=== PATIENT | female | born 1950 | race Caucasian/White ===

== ENCOUNTER 2016-12-27 13:48 | Emergency (ER) | payer BC ==
--- NOTE | 2016-12-27 14:11 | EDM.PDOC ---
ED HPI GI/ABDOMINAL - General Chief Complaint: Abdominal Pain Stated Complaint: LOW ABDOMINAL PAIN, BACK PAIN Time Seen by Provider: 12/27/16 14:11 Source of Information: Reports: Patient History Limitations: Reports: No limitations - History of Present Illness INITIAL COMMENTS - FREE TEXT/NARRATIVE: 66-year-old female presents to the ED with diffuse abdominal pain I strong cramping colicky component pain off and on since early Sunday a.m. December 25. She reports her bowels are still functioning with formed stool no blood. She feels her abdomen is distended. It is increasing pain in her lower back particularly both SI joints. She is nauseated and vomited once on Sunday morning and since that time is taking ice and ice chips mainly only. She had a ruptured appendix in late February of 2016 requiring surgery in [place]. She spent a week in hospital on IV antibiotics after the surgery. No doubt has several adhesions. She has a midline infraumbilical wound. Previous similar type problems. She still believes she is passing some flatus. No problems with her passing her urine. She has had some chills and low-grade fever of 102. Symptom Onset Date: 12/25/16 (Awoke her symptoms) Timing/Duration: Reports: Day(s):, Constant, Gradual onset, Waxing/waning Location: generalized Quality: Reports: cramping, fullness, stabbing, radiating (Into her lower back.) Severity: moderate Improves with: Reports: defecating Worsens with: Reports: other (Trying to drink or eat) Context: Denies: sick contact, bad/questionable food, out of country travel, recent surgery, recent trauma, lifting, activity/exercise, other Associated Symptoms (-Female): Reports: back pain (Chronic severe low back pain she states since her ruptured appendix), shoulder pain ( mostly in the distribution of both of her SI joints.), fever/chills, loss of appetite, malaise , nausea/vomiting. 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[employer]: Reports: Other (see below) (Does not take acetaminophen or NSAIDs as they she is allergic.) - Related Data Allergies/ADRs: Allergies Allergy/AdvReac Type Severity Reaction Status Date / Time No Known Allergies Allergy Verified 12/27/16 14:12 Home Meds: Home Meds Labetalol [Normodyne] 400 mg PO BID 03/15/16 [History] amLODIPine Besylate [Amlodipine Besylate] 5 mg PO DAILY 03/15/16 [History] Ciprofloxacin HCl [Cipro] 500 mg PO BID #16 tablet 12/27/16 [Rx] oxyCODONE HCl [Roxicodone] 5 mg PO Q4H PRN #12 tablet 12/27/16 [Rx] Past Medical History HEENT History: Reports: Impaired vision Cardiovascular History: Reports: Hypertension Gastrointestinal History: Reports: Other (see below) Other Gastrointestinal History: hemhorroids - Past Surgical History Female Surgical History: Reports: Hysterectomy Social & Family History - Family History Family Medical History: Noncontributory - Tobacco Use Smoking Status *Q: Current Every Day Smoker Years of Tobacco use: 1 Packs/Tins Daily: 50 - Recreational Drug Use Recreational Drug Use: No - Living Situation & Occupation Living situation: Reports: single Occupation: employed (Works at the local residential.) ED ROS GENERAL - Review of Systems Review Of Systems: See Below Constitutional: Reports: fever, chills, malaise, weakness, fatigue, decreased appetite, weight loss HEENT: Reports: No symptoms Respiratory: Reports: No Symptoms. Denies: Shortness of Breath, Wheezing, Pleuritic Chest Pain, Cough Cardiovascular: Reports: No symptoms Endocrine: Reports: no symptoms GI/Abdominal: Reports: Abdominal pain, Decreased appetite, Distension, Flatus, Nausea (Nausea comes and goes), Vomiting (Vomited once early Sunday morning.). Denies: Anorexia (See history present illness), Black stool, Bloody stool, Constipation, Diarrhea, Difficulty swallowing, Hematemesis (Feel she's still passing some flatus), Hematochezia, Melena, Stool incontinence, Other : Reports: no symptoms Musculoskeletal: Reports: back pain Skin: Reports: no symptoms (Lateral severe low back pain the distribution of both SI joints.) Neurological: Reports: No Symptoms Psychiatric: Reports: No symptoms Hematologic/Lymphatic: Reports: no symptoms Immunologic: Reports: no symptoms ED EXAM, GI/ABD - Physical Exam Exam: See Below Exam Limited By: No limitations General Appearance: alert, WD/WN, anxious, mild distress Eyes: bilateral: normal appearance (No jaundice) Throat/Mouth: Other Head: atraumatic (Tongue is dry and coated), normocephalic Neck: normal inspection, supple, non-tender, full range of motion. No: carotid bruit, lymphadenopathy (L), lymphadenopathy (R), thyromegaly Respiratory/Chest: lungs clear (Mild tachypnea dressed), normal breath sounds, no accessory muscle use, chest non-tender, respiratory distress, wheezing ( Occasional expiratory wheeze. Rarely she smokes a few cigarettes daily) Cardiovascular: regular rate, rhythm, no edema, no gallop, no murmur, no rub. No: normal peripheral pulses GI/Abdominal: hyperactive bowel sounds, tympanic bowel sounds (Very hyperactive bowel sounds in all 4 quadrants), tenderness (Worse in the midline lower abdomen just above the pubic symphysis.), distention. No: guarding (Diffusely tympanitic to percussion.), rebound, rigidity, hepatomegaly Back Exam: normal inspection, full range of motion. No: CVA tenderness (L), CVA tenderness (R) Extremities: normal inspection, normal range of motion, non-tender, no pedal edema, normal capillary refill Neurological: alert, oriented, CN II-XII intact, normal cognition, normal gait Psychiatric: normal affect, normal mood Skin Exam: Warm, Dry, Intact, Normal color, No rash EKG INTERPRETATION EKG Date: 12/27/16 Time: 14:55 Rhythm: NSR Rate (beats/min): 73 [place]: normal P-wave: enlarged (Consider left atrial hypertrophy pattern.) QRS: other (Q waves V1 to V3 compatible with an old anteroseptal myocardial infarction. Borderline criteria for left ventricular tree pattern.) ST-T: other (Mild diffuse early repolarization pattern. T waves are peaked symmetrically in several of the precordial leads. Consider hyperkalemia.) QT: normal Course - Vital Signs Last Recorded V/S: Last Vital Signs Temp 35.5 C 12/27/16 14:05 Pulse 86 12/27/16 14:05 Resp 20 12/27/16 14:05 BP 142/95 H 12/27/16 14:05 Pulse Ox 99 12/27/16 14:05 - Orders/Labs/Meds Orders: Active Orders 24 hr Category Date Time Status EKG Documentation Completion [RC] STAT Care 12/27/16 14:41 Active Abdomen 1V Flat [CR] Stat Exams 12/27/16 14:34 Taken Abdomen Pelvis w Cont [CT] Stat Exams 12/27/16 15:33 Taken Chest 1V Frontal [CR] Stat Exams 12/27/16 14:34 Taken CULTURE BLOOD [BC] Stat Lab 12/27/16 15:15 Received CULTURE BLOOD [BC] Stat Lab 12/27/16 15:27 Received CULTURE URINE [RM] Stat Lab 12/27/16 15:40 Received Dextrose 5%-0.9% NaCl [Dextrose 5%-Normal Saline] 1,000 Med 12/27/16 14:45 Active ml IV ASDIRECTED Sodium Chloride 0.9% [Saline Flush] Med 12/27/16 16:36 Active 10 ml FLUSH ONETIME PRN Blood Culture x2 Reflex Set [OM.PC] Stat Oth 12/27/16 14:42 Ordered Medication Orders Dextrose/Sodium Chloride (Dextrose 5%-Normal Saline) 1,000 mls @ 500 mls/hr IV ASDIRECTED PRISCILLA Last Admin: 12/27/16 15:10 Dose: 500 mls/hr Sodium Chloride (Saline Flush) 10 ml FLUSH ONETIME PRN PRN Reason: IV FLUSH Last Admin: 12/27/16 16:51 Dose: 10 ml Labs: Laboratory Tests 12/27/16 12/27/16 12/27/16 Range/Units 14:41 14:41 14:41 WBC 8.89 (3.98-10.04) K/mm3 RBC 4.82 (3.98-5.22) M/mm3 Hgb 14.9 (11.2-15.7) gm/L Hct 44.4 (34.1-44.9) % MCV 92.1 (79.4-94.8) fl MCH 30.9 (25.6-32.2) pg MCHC 33.6 (32.2-35.5) g/dl RDW Std Deviation 45.2 (36.4-46.3) fL Plt Count 238 (182-369) K/mm3 MPV 10.2 (9.4-12.3) fl Neutrophils % (Manual) 70 H (40-60) % Band Neutrophils % 0 (0-10) % Lymphocytes % (Manual) 29 (20-40) % Atypical Lymphs % 0 % Monocytes % (Manual) 0 L (2-10) % Eosinophils % (Manual) 1 (0.7-5.8) % Basophils % (Manual) 0 L (0.1-1.2) Platelet Estimate Adequate RBC Morph Comment Normal ESR (0-20) mm/hr PT 9.7 (8.0-13.0) SECONDS INR 0.90 Sodium 134 L (136-145) mEq/L Potassium 3.6 (3.5-5.1) mEq/L Chloride 97 L (98-107) mEq/L Carbon Dioxide 24 (21-32) mEq/L Anion Gap 16.6 H (5-15) BUN 16 (7-18) mg/dL Creatinine 0.9 (0.55-1.02) mg/dL Est Cr Clr Drug Dosing 46.69 mL/min Estimated GFR (MDRD) > 60 (>60) mL/min BUN/Creatinine Ratio 17.8 (14-18) Glucose 93 (80-115) mg/dL Calcium 9.4 (8.5-10.1) mg/dL Magnesium (1.8-2.4) mg/dl Total Bilirubin 0.6 (0.2-1.0) mg/dL AST 37 (15-37) U/L ALT 57 (14-59) U/L Alkaline Phosphatase 116 (46-116) U/L C-Reactive Protein (<1.0) mg/dL Total Protein 8.8 H (6.4-8.2) g/dl Albumin 4.2 (3.4-5.0) g/dl Globulin 4.6 gm/dL Albumin/Globulin Ratio 0.9 L (1-2) Lipase (73-393) U/L Urine Color (Yellow) Urine Appearance (Clear) Urine pH (5.0-8.0) Ur Specific [place] (1.005-1.030) Urine Protein (Negative) Urine Glucose (UA) (Negative) Urine Ketones (Negative) Urine Occult Blood (Negative) Urine Nitrite (Negative) Urine Bilirubin (Negative) Urine Urobilinogen (0.2-1.0) Ur Leukocyte Esterase (Negative) Urine RBC (0-5) /hpf Urine WBC (0-5) /hpf Ur Epithelial Cells Ur Squamous Epith Cells (0-5) /hpf Urine Bacteria (FEW) /hpf Urine Mucus (FEW) /hpf 12/27/16 12/27/16 12/27/16 Range/Units 14:41 14:41 14:41 WBC (3.98-10.04) K/mm3 RBC (3.98-5.22) M/mm3 Hgb (11.2-15.7) gm/L Hct (34.1-44.9) % MCV (79.4-94.8) fl MCH (25.6-32.2) pg MCHC (32.2-35.5) g/dl RDW Std Deviation (36.4-46.3) fL Plt Count (182-369) K/mm3 MPV (9.4-12.3) fl Neutrophils % (Manual) (40-60) % Band Neutrophils % (0-10) % Lymphocytes % (Manual) (20-40) % Atypical Lymphs % % Monocytes % (Manual) (2-10) % Eosinophils % (Manual) (0.7-5.8) % Basophils % (Manual) (0.1-1.2) Platelet Estimate RBC Morph Comment ESR 53 H (0-20) mm/hr PT (8.0-13.0) SECONDS INR Sodium (136-145) mEq/L Potassium (3.5-5.1) mEq/L Chloride (98-107) mEq/L Carbon Dioxide (21-32) mEq/L Anion Gap (5-15) BUN (7-18) mg/dL Creatinine (0.55-1.02) mg/dL Est Cr Clr Drug Dosing mL/min Estimated GFR (MDRD) (>60) mL/min BUN/Creatinine Ratio (14-18) Glucose (80-115) mg/dL Calcium (8.5-10.1) mg/dL Magnesium 2.2 (1.8-2.4) mg/dl Total Bilirubin (0.2-1.0) mg/dL AST (15-37) U/L ALT (14-59) U/L Alkaline Phosphatase (46-116) U/L C-Reactive Protein 11.9 H* (<1.0) mg/dL Total Protein (6.4-8.2) g/dl Albumin (3.4-5.0) g/dl Globulin gm/dL Albumin/Globulin Ratio (1-2) Lipase 120 (73-393) U/L Urine Color (Yellow) Urine Appearance (Clear) Urine pH (5.0-8.0) Ur Specific [place] (1.005-1.030) Urine Protein (Negative) Urine Glucose (UA) (Negative) Urine Ketones (Negative) Urine Occult Blood (Negative) Urine Nitrite (Negative) Urine Bilirubin (Negative) Urine Urobilinogen (0.2-1.0) Ur Leukocyte Esterase (Negative) Urine RBC (0-5) /hpf Urine WBC (0-5) /hpf Ur Epithelial Cells Ur Squamous Epith Cells (0-5) /hpf Urine Bacteria (FEW) /hpf Urine Mucus (FEW) /hpf 12/27/16 Range/Units 15:40 WBC (3.98-10.04) K/mm3 RBC (3.98-5.22) M/mm3 Hgb (11.2-15.7) gm/L Hct (34.1-44.9) % MCV (79.4-94.8) fl MCH (25.6-32.2) pg MCHC (32.2-35.5) g/dl RDW Std Deviation (36.4-46.3) fL Plt Count (182-369) K/mm3 MPV (9.4-12.3) fl Neutrophils % (Manual) (40-60) % Band Neutrophils % (0-10) % Lymphocytes % (Manual) (20-40) % Atypical Lymphs % % Monocytes % (Manual) (2-10) % Eosinophils % (Manual) (0.7-5.8) % Basophils % (Manual) (0.1-1.2) Platelet Estimate RBC Morph Comment ESR (0-20) mm/hr PT (8.0-13.0) SECONDS INR Sodium (136-145) mEq/L Potassium (3.5-5.1) mEq/L Chloride (98-107) mEq/L Carbon Dioxide (21-32) mEq/L Anion Gap (5-15) BUN (7-18) mg/dL Creatinine (0.55-1.02) mg/dL Est Cr Clr Drug Dosing mL/min Estimated GFR (MDRD) (>60) mL/min BUN/Creatinine Ratio (14-18) Glucose (80-115) mg/dL Calcium (8.5-10.1) mg/dL Magnesium (1.8-2.4) mg/dl Total Bilirubin (0.2-1.0) mg/dL AST (15-37) U/L ALT (14-59) U/L Alkaline Phosphatase (46-116) U/L C-Reactive Protein (<1.0) mg/dL Total Protein (6.4-8.2) g/dl Albumin (3.4-5.0) g/dl Globulin gm/dL Albumin/Globulin Ratio (1-2) Lipase (73-393) U/L Urine Color Light yellow (Yellow) Urine Appearance Clear (Clear) Urine pH 6.0 (5.0-8.0) Ur Specific [place] 1.010 (1.005-1.030) Urine Protein Negative (Negative) Urine Glucose (UA) Negative (Negative) Urine Ketones Negative (Negative) Urine Occult Blood Trace-lysed H (Negative) Urine Nitrite Negative (Negative) Urine Bilirubin Negative (Negative) Urine Urobilinogen 0.2 (0.2-1.0) Ur Leukocyte Esterase 1+ H (Negative) Urine RBC 0-5 (0-5) /hpf Urine WBC 20-30 H (0-5) /hpf Ur Epithelial Cells Not Reportable Ur Squamous Epith Cells 5-10 H (0-5) /hpf Urine Bacteria Moderate H (FEW) /hpf Urine Mucus Not seen (FEW) /hpf Meds: Medications Generic Name Dose Route Start Last Admin Trade Name Freq PRN Reason Stop Dose Admin Dextrose/Sodium Chloride 1,000 mls @ 500 mls/hr 12/27/16 14:45 12/27/16 15:10 Dextrose 5%-Normal Saline IV 500 mls/hr ASDIRECTED PRISCILLA Administration Sodium Chloride 10 ml 12/27/16 16:36 12/27/16 16:51 Saline Flush FLUSH 10 ml ONETIME PRN Administration IV FLUSH Discontinued Medications Generic Name Dose Route Start Last Admin Trade Name Freq PRN Reason Stop Dose Admin Diatrizoate Meglum/Diatrizoate Sod 90 ml 12/27/16 16:36 12/27/16 16:51 Gastrografin 37% PO 12/27/16 16:37 90 ml ONETIME ONE Administration Hydromorphone HCl 0.5 mg 12/27/16 14:43 12/27/16 15:05 Dilaudid IVPUSH 12/27/16 14:44 0.5 mg ONETIME ONE Administration Hydromorphone HCl 0.5 mg 12/27/16 16:24 12/27/16 16:30 Dilaudid IVPUSH 12/27/16 16:25 0.5 mg ONETIME ONE Administration Hydromorphone HCl 1 mg 12/27/16 17:37 12/27/16 17:48 Dilaudid IVPUSH 12/27/16 17:38 1 mg ONETIME ONE Administration Ceftriaxone Sodium 1 gm/ 100 mls @ 200 mls/hr 12/27/16 16:56 12/27/16 17:41 Sodium Chloride IV 12/27/16 17:25 200 mls/hr ONETIME ONE Administration Iopamidol 100 ml 12/27/16 16:36 12/27/16 16:51 Isovue-300 (61%) IVPUSH 12/27/16 16:37 100 ml ONETIME ONE Administration Ondansetron HCl 4 mg 12/27/16 14:42 12/27/16 15:02 Zofran IVPUSH 12/27/16 14:43 4 mg ONETIME ONE Administration - Radiology Interpretation Free Text/Narrative:: 66-year-old female presents the ED with diffuse abdominal discomfort since she awoke on December 25. Diffuse abdominal cramping pain and feels bloated up. She states she still having normal formed bowel movement without blood. She believes she still passing some flatus. She is taking only water or ice chips internally. She vomited once Sunday morning. This was bilious and contained little bit of undigested food from the night before. Of note she had recent ruptured appendix in late February of 2016 requiring emergency surgery and a midline laparotomy. She spent a week in [facility]. Dr. Almanza was her surgeon. She's never had a bowel obstruction or problems since. On today's examination she is distended and hypertympanitic intubate to percussion throat. Very hyperactive bowel sounds suggesting a partial bowel obstruction by history since she still having stools. Plan IV D5 normal saline at open. given Dilaudid 0.5 mg IV and Zofran 4 mg IV for nausea and pain relief. She is for chest x-ray one view of the abdomen and lab work. Urinalysis as well. - Re-Assessments/Exams Free Text/Narrative Re-Assessment/Exam: 12/27/16 15:32 one view chest x-ray reveals mildly hyperinflated lung rehman but normal cardiac silhouette and no infiltrates in the lungs. KUB reveals numerous dilated loops of small bowel throughout the abdomen without any air- fluid levels. Appears to be a fair amount of fluid down in the pelvis however. We'll therefore go ahead with CT of the abdomen and pelvis with IV contrast. 12/27/16 15:36 white count is 8.89 without a differential available yet. Hemoglobin is 14.9 hematocrit 44.4. Platelets are 238,000. PT is 9.7 INR 0.90. Serum sodium is mildly low at 134 potassium 3.6 chloride 97 bicarbonate 24. Anion gap is mildly elevated at 16.6 CRP is markedly elevated at 11.9 suggesting an underlying infective process. Query pelvic abscess. Will proceed with the CT of the abdomen and pelvis as above. She is having increased abdominal pain. I will prescribe Dilaudid 0.5 mg IV once again. 12/27/16 16:28 the differential on the white count is 70% neutrophils and no band cells. Urinalysis shows 1+ leukocyte esterase and 20-30 white blood cells per high-power field with moderate bacteria. Urine culture will be ordered. I will start her on IV antibiotic -Rocephin 1 g IV after she returns from CT suite. 12/27/16 17:38: Patient is having more pain at this time. Will give her Dilaudid 1 mg IV. Awaiting for the formal CT report from [facility]. 12/27/16 18:20: CT reports he has small hiatal hernia with gastroesophageal reflux. Incidental 5 x 3 mm noncalcified pulmonary nodule in the right lung base anteriorly recommend progress the patient is no followup necessary. Abdomen shows scattered small density liver lesions most likely representing cysts and these were noted on previous CT. Gallbladder reveals diffuse biliary ductal dilatation the common bile duct measures up to 1 cm diameter. There is also diffuse intrahepatic biliary ductal dilatation of unclear etiology. No radiopaque common bile stones are seen. Gallbladder is mildly dilated and its wall enhances. No evidence of pericholecystic fluid or inflammation. No gallstones noted. Pancreas appears normal on CT. Spleen appears normal adrenals are normal. Kidneys and ureters showed low-density lesion left kidney which is a cyst. The stomach and bowel there is mild small bowel dilatation there are multiple loops that are upper caliber of normal. 2 mildly dilated distal small bowel. There is no definite single abruption transition point seen in the small bowel there is no evidence of diffuse small bowel dilatation. The colon was not significantly decompressed. Findings are most likely due to an ileus rather than early small bowel obstruction. Diffuse colonic diverticulitis. Other than the left hemicolon. No evidence of acute diverticulitis patient appears to be [id number] resection which would correlate with her [place] appendix in February of last year. There is an enterocolic anastomosis in the right lower quadrant. Appendix is been surgically removed as has the uterus. 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 This may account for the patient's quite severe low back pain. On review of her labs there is no evidence of biliary tree obstruction. A lipase was overlooked and was ordered. I suspect early is secondary to urinary tract infection. She will need to be admitted to the hospital until partial bowel obstruction is ruled out completely. CRP of 11.9 strongly suggests an underlying infective process and urine is revealing 20-30 white blood cells per high-power field. Cultures are pending. I spoke with the patient at length and she is decided she does not wish to come into the hospital. She prefers to try and see how things go if. No she's been up once and did pass a fair amount of the contrast per rectum indicating that she's not obstructed. 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 I will therefore discharge her to home and place her on Cipro 500 mg twice daily for 7 days to clear up urinary tract infection. Roxicodone tablets 5 mg one or 2 every 4-6 hours needed for pain relief if needed. To return if she is not getting better in the next 48 hours or not passing flatus. No will be given to excuse her from work place until next one Sunday. Of note her lipase was normal at 120 as well. Departure - Departure Time of Disposition: 19:11 Disposition: Home, Self-Care 01 Condition: fair Clinical Impression: Abdominal pain in female patient, Adynamic ileus, Upper urinary tract infection Prescriptions: Ciprofloxacin HCl [Cipro] 500 mg PO BID #16 tablet oxyCODONE HCl [Roxicodone] 5 mg PO Q4H PRN #12 tablet PRN Reason: Pain relief Instructions: Ileus, Urinary Tract Infection, Adult, [id number], Abdominal Pain, Adult, [id number] Referrals: Faisal John MD [Primary Care Provider] - Forms: ED Department Discharge Additional Instructions: Evaluation in the his apartment today in regards to diffuse lower abdominal pain with distention worsening over the last 3 days and associated increased pain in the lower back. Initial evaluation revealed hyperactive bowel sounds and distention indicating a lot of extra air within the bowel in the abdomen. X- rays however did not suggest a bowel obstruction but he did shoot show several loops of dilated small bowel. CT scan of the abdomen pulses are performed performed to rule out any source of infection it in the pelvis and none was found. The bowel itself is dilated with quite a bit of fluid within its without any obvious obstruction. We call this an ileus pattern which means it's motility is lower than normal in the gases are kept in the bowel wall rhythm normal causing distention. The cause of this ileus may well be urinary tract infection which was diagnosed as what well with lots of pus cells and bacteria noted in the urine. Also markers for inflammation were elevated due to the infection. He received first dose of antibiotic called Rocephin intravenously while in the ED for urinary tract infection. He needs fairly prescription tomorrow for Cipro 500 mg twice daily for 8 more days to clear up the infection completely. Also Roxicodone tablets one tablet every 4-6 hours may be used as needed for pain relief. He would need to return to the emergency room if you stopped passing gas or you're abdominal pain increases over the next 48 hours instead of improves. Suggest you be off work until Sunday, January 01 due to current illness. Try and take plenty of fluids such as Gatorade or Powerade to daily 5 ounces an hour. May advance to soup broth and then turkey rice turkey noodle soup et cetera. May then advance to a regular diet as tolerated. 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 This requires further consultation with a neurosurgeon who knows more about this problem and how it can be managed. Please have your personal physician make appropriate referral in this regard. - My Orders Last 24 Hours: My Active Orders 12/27/16 14:34 Abdomen 1V Flat [CR] Stat Chest 1V Frontal [CR] Stat 12/27/16 14:41 EKG Documentation Completion [RC] STAT 12/27/16 14:42 Blood Culture x2 Reflex Set [OM.PC] Stat 12/27/16 14:45 Dextrose 5%-0.9% NaCl [Dextrose 5%-Normal Saline] 1,000 ml IV ASDIRECTED 12/27/16 15:15 CULTURE BLOOD [BC] Stat 12/27/16 15:27 CULTURE BLOOD [BC] Stat 12/27/16 15:33 Abdomen Pelvis w Cont [CT] Stat 12/27/16 15:40 CULTURE URINE [RM] Stat 12/27/16 16:36 Sodium Chloride 0.9% [Saline Flush] 10 ml FLUSH ONETIME PRN - Assessment/Plan Last 24 Hours: My Active Orders 12/27/16 14:34 Abdomen 1V Flat [CR] Stat Chest 1V Frontal [CR] Stat 12/27/16 14:41 EKG Documentation Completion [RC] STAT 12/27/16 14:42 Blood Culture x2 Reflex Set [OM.PC] Stat 12/27/16 14:45 Dextrose 5%-0.9% NaCl [Dextrose 5%-Normal Saline] 1,000 ml IV ASDIRECTED 12/27/16 15:15 CULTURE BLOOD [BC] Stat 12/27/16 15:27 CULTURE BLOOD [BC] Stat 12/27/16 15:33 Abdomen Pelvis w Cont [CT] Stat 12/27/16 15:40 CULTURE URINE [RM] Stat 12/27/16 16:36 Sodium Chloride 0.9% [Saline Flush] 10 ml FLUSH ONETIME PRN
[2016-12-27] MEDS ORDERED: Ondansetron 4 MG/2 ML SDV IVPUSH ONE (14:42)
[2016-12-27] MEDS ORDERED: HYDROmorphone 0.5 MG/0.5 ML Syringe IVPUSH ONE ×2 (14:43→16:24)
[2016-12-27] MEDS ORDERED: Dextrose 5%-0.9% NaCl 1,000 ML IV SCH (14:45)
[2016-12-27] MEDS ORDERED: Diatrizoate Meglumine/Diatrizoate Sodium 37% 120 ML Bottle PO ONE (16:36)
[2016-12-27] MEDS ORDERED: Sodium Chloride 0.9% 10 ML Syringe FLUSH PRN (16:36)
[2016-12-27] MEDS ORDERED: Iopamidol 612 MG/ML 100 ML Bottle IVPUSH ONE (16:36)
[2016-12-27] MEDS ORDERED: cefTRIAXone 1 GM in Sodium Chloride 0.9% 100 ML IV ONE (16:56)
[2016-12-27] MEDS ORDERED: HYDROmorphone 1 MG/ML Syringe IVPUSH ONE (17:37)
[2016-12-27 20:22] VITALS: BP 152/84
--- NOTE | 2016-12-28 11:43 | CT ---
CT abdomen and pelvis Technique: Multiple axial sections were obtained from above the dome of the diaphragm inferiorly through the pubic symphysis. Intravenous and oral contrast has been given. Comparison: Previous abdominal and pelvic CT study of 03/15/16. Findings: Minimal subpleural nodule noted within the anterior right middle lobe. This measures about 3 mm in size. This area was not included on prior study to determine stability. Minimal dependent atelectasis seen within both posterior lung bases. Mild intrahepatic biliary duct dilatation is seen with mildly prominent extrahepatic biliary duct. Findings are fairly stable from prior exam. Slightly dilated gallbladder is seen also appearing stable from prior exam. Low density lesions are seen within the liver compatible with small cysts. Spleen size appears normal. Small hiatal hernia is seen with gastroesophageal reflux of contrast. Adrenal glands show no nodule. Pancreas appears within normal limits. Aorta shows atherosclerotic change without aneurysmal dilatation. Stable cyst noted within the left kidney. No retroperitoneal adenopathy or mesenteric abnormalities are seen. No pelvic mass or adenopathy is seen. Small bowel is slightly prominent in size. Mild ileus is a possibility. No free fluid or inflammatory change is seen. Delayed images show contrast within the distal ureters and bladder. Bone window settings were reviewed showing degenerative change within the spine. Impression: 1. Small subpleural nodule within the right middle lobe. Please correlate if patient is a smoker and if so, follow-up chest CT recommended in 1 year. 2. Mild intrahepatic and extrahepatic biliary duct dilatation which is stable from prior CT exam. 3. Small hiatal hernia with gastroesophageal reflux. 4. Slightly prominent small bowel most likely due to mild ileus. 5. Other incidental findings as noted above. Agree with preliminary report issued by [facility] (preliminary report dictated on 12/27/16, 7:10 PM Central Time) Diagnostic code #3
--- NOTE | 2016-12-28 11:46 | CR ---
Abdomen: Supine view of the abdomen was obtained. Comparison: Previous study of 03/15/16. Slight increased gas within colon and small bowel noted. Degenerative change and mild scoliosis is present within the spine. No abnormal calcifications or soft tissue abnormality is seen. Impression: 1. Slight increased bowel gas. Findings most likely due to mild ileus or swallowed air. Findings do not appear to be obstructive. 2. Other incidental findings. Diagnostic code #2
--- NOTE | 2016-12-28 11:46 | CR ---
Chest: Frontal view of the chest was obtained. Comparison: No previous chest x-ray. Heart size is normal. Tortuous thoracic aorta is seen. Lungs are hyperinflated. Pleural thickening noted within the left upper chest as well as mild left upper lobe apical density believed to represent scarring. Lungs otherwise are clear. Impression: 1. Findings within the left upper chest likely chronic. 2. Emphysematous change. 3. Nothing acute is otherwise seen. Diagnostic code #2
== END 2016-12-27 19:53 | disposition home or self-care (01) ==
LOC: JD.ED 13:48
DX: K56.0 Paralytic ileus (principal); K21.9 Gastro-esophageal reflux disease without esophagitis; K44.9 Diaphragmatic hernia without obstruction or gangrene; R91.1 Solitary pulmonary nodule; N39.0 Urinary tract infection, site not specified; I10 Essential (primary) hypertension; Z79.899 Other long term (current) drug therapy; F17.200 Nicotine dependence, unspecified, uncomplicated
CPT/HCPCS: 36415; 71010; 74000; 74177; 80053; 81001; 83690; 83735; 85025; 85610; 85652; 86140; 87040; 87086; 93005; 96361; 96365; 96375; 96376; 99285; J0696; J1170; J2405; J7030; J7042; J7050; Q9963; Q9967; 87088; 87186

== ENCOUNTER 2020-01-22 10:37 | Emergency (ER) | payer BC, MEDICARE ==
[2020-01-22] MEDS ORDERED: Tenecteplase 50 MG Kit IV ONE (10:40)
[2020-01-22] MEDS ORDERED: Sodium Chloride 0.9% 10 ML Syringe FLUSH PRN (10:40)
[2020-01-22] MEDS ORDERED: Heparin Sodium 5,000 Units/ML Vial IVPUSH ONE (10:41)
[2020-01-22] MEDS ORDERED: Heparin Sodium/D5W 25,000 UNITS/500 ML BAG IV SCH (10:45)
[2020-01-22] MEDS ORDERED: Metoprolol Tartrate 5 MG/5 ML SDV IVPUSH ONE ×2 (10:47→11:00)
--- NOTE | 2020-01-22 10:49 | EDM.PDOC ---
ED HPI GENERAL MEDICAL PROBLEM - General Chief Complaint: Chest Pain Stated Complaint: [facility] Time Seen by Provider: 01/22/20 10:39 Source of Information: Reports: Patient, EMS History Limitations: Reports: No Limitations - History of Present Illness INITIAL COMMENTS - FREE TEXT/NARRATIVE: The patient presents by [facility] for a STEMI. She said this all started this morning at 6am with chest pain, shortness of breath and she was sweaty. When EMS arrived they found the same. They did a 12 lead EKG and they found her to have ST elevation in the inferior leads. She as given aspirin and morphine for pain. She still has pain. She has never had an IN before. She does have a history of hypertension but she quit taking her medications a few months ago because she was doing better. She has no fever, chills, cough, congestion or runny nose. Onset: Sudden Duration: Hour(s): Location: Reports: Chest Quality: Reports: Pressure Severity: Severe Improves with: Reports: None Worsens with: Reports: None Associated Symptoms: Reports: Chest Pain, Shortness of Breath. Denies: Cough, Fever/Chills, Headaches, Nausea/Vomiting Treatments STAVE BLOCK SPLITTER: Reports: Aspirin, EKG, IV/IO, Oxygen, Other (see below) Other Treatments STAVE BLOCK SPLITTER: morphine 4 mg Middle Chest Pain Score (Numeric/FACES): 10 - Related Data Allergies Allergy/AdvReac Type Severity Reaction Status Date / Time No Known Allergies Allergy Verified 01/22/20 10:42 Home Meds: Home Meds Labetalol [Normodyne] 400 mg PO BID 03/15/16 [History] amLODIPine Besylate [Amlodipine Besylate] 5 mg PO DAILY 03/15/16 [History] Ciprofloxacin HCl [Cipro] 500 mg PO BID #16 tablet 12/27/16 [Rx] oxyCODONE HCl [Roxicodone] 5 mg PO Q4H PRN #12 tablet 12/27/16 [Rx] Past Medical History HEENT History: Reports: Impaired Vision Cardiovascular History: Reports: Hypertension Gastrointestinal History: Reports: Other (See Below) Other Gastrointestinal History: hemhorroids - Past Surgical History GI Surgical History: Reports: Appendectomy, Other (See Below) Social & Family History - Family History Family Medical History: Noncontributory - Caffeine Use Caffeine Use: Reports: None - Living Situation & Occupation Living situation: Reports: Single Occupation: Employed ED ROS GENERAL - Review of Systems Review Of Systems: See Below Constitutional: Reports: No Symptoms HEENT: Reports: No Symptoms Respiratory: Reports: Shortness of Breath Cardiovascular: Reports: Chest Pain Endocrine: Reports: No Symptoms GI/Abdominal: Reports: No Symptoms : Reports: No Symptoms Musculoskeletal: Reports: No Symptoms ED EXAM, GENERAL - Physical Exam Exam: See Below Exam Limited By: No Limitations General Appearance: Alert, No Apparent Distress Ears: Normal External Exam Nose: Normal Inspection Head: Atraumatic, Normocephalic Neck: Normal Inspection Respiratory/Chest: No Respiratory Distress, Lungs Clear, Normal Breath Sounds Cardiovascular: Regular Rate, Rhythm, No Edema, No Murmur GI/Abdominal: Soft, Non-Tender, No Organomegaly, No Mass Back Exam: Normal Inspection Extremities: Normal Inspection Neurological: Alert, Oriented, No Motor/Sensory Deficits Skin Exam: Pallor EKG INTERPRETATION EKG Date: 01/22/20 Time: 10:35 Rhythm: Other (sinus bradycardia) Rate (Beats/Min): 57 [place]: Normal P-Wave: Present QRS: Normal ST-T: Elevated (in II, III, aVF with reciprocal changes in V2 through V6) Course - Vital Signs Last Recorded V/S: Last Vital Signs Temp 96.8 F L 01/22/20 10:38 Pulse 54 L 01/22/20 10:48 Resp 16 01/22/20 10:48 BP 242/133 H 01/22/20 10:48 Pulse Ox 99 01/22/20 10:48 - Orders/Labs/Meds Orders: Active Orders 24 hr Category Date Time Status Cardiac Monitoring [RC] . DIRECTED Care 01/22/20 10:40 Active EKG Documentation Completion [RC] STAT Care 01/22/20 10:40 Active Oxygen Therapy [RC] PRN Care 01/22/20 10:40 Active Peripheral IV Care [RC] . DIRECTED Care 01/22/20 10:40 Active Chest 1V Frontal [CR] Stat Exams 01/22/20 10:40 Taken CBC WITH AUTO DIFF [HEME] Stat Lab 01/22/20 10:40 Ordered COMPREHENSIVE METABOLIC PN,CMP [CHEM] Stat Lab 01/22/20 10:40 Ordered TROPONIN I [CHEM] Stat Lab 01/22/20 10:40 Ordered Heparin Sodium/D5W [Heparin 25,000 Units in D5W 500 ML] Med 01/22/20 10:45 Active 25,000 units in 500 ml IV TITRATE Nitroglycerin/D5W [Nitroglycerin 25 MG/D5W 250 ML] Med 01/22/20 11:00 Active 25 mg in 250 ml IV TITRATE Sodium Chloride 0.9% [Saline Flush] Med 01/22/20 10:40 Active 10 ml FLUSH ASDIRECTED PRN Peripheral IV Insertion Adult [OM.PC] Stat Oth 01/22/20 10:40 Ordered Medication Orders Heparin Sodium/Dextrose (Heparin 25,000 Units In D5w 500 Ml) 25,000 units in 500 mls @ 18.779 mls/hr IV TITRATE PRISCILLA; Protocol Nitroglycerin/Dextrose (Nitroglycerin 25 Mg/D5w 250 Ml) 25 mg in 250 mls @ 5 mls/hr IV TITRATE PRISCILLA; Protocol Sodium Chloride (Saline Flush) 10 ml FLUSH ASDIRECTED PRN PRN Reason: Keep Vein Open Meds: Medications Generic Name Dose Route Start Last Admin Trade Name Freq PRN Reason Stop Dose Admin Heparin Sodium/Dextrose 25,000 units in 500 mls @ 18.779 mls/hr 01/22/20 10: 45 Heparin 25,000 Units In D5w 500 Ml IV TITRATE PRISCILLA Protocol 18 UNITS/KG/HR Nitroglycerin/Dextrose 25 mg in 250 mls @ 5 mls/hr 01/22/20 11:00 Nitroglycerin 25 Mg/D5w 250 Ml IV TITRATE PRISCILLA Protocol Sodium Chloride 10 ml 01/22/20 10:40 Saline Flush FLUSH ASDIRECTED PRN Keep Vein Open Discontinued Medications Generic Name Dose Route Start Last Admin Trade Name Freq PRN Reason Stop Dose Admin Heparin Sodium (Porcine) 3,120 units 01/22/20 10:41 Heparin Sodium IVPUSH 01/22/20 10:42 .BOLUS ONE Metoprolol Tartrate 5 mg 01/22/20 10:47 Lopressor IVPUSH 01/22/20 10:48 ONETIME ONE Tenecteplase 30 mg 01/22/20 10:40 Tnkase IV 01/22/20 10:41 ONETIME ONE Protocol - Re-Assessments/Exams Free Text/Narrative Re-Assessment/Exam: 01/22/20 10:56 A medical alert was called. The patient's EKG shows ST elevation in the inferior leads. I ordered TnKase per weight based protocol. I also ordered lopressor 5mg IV, nitro drip, heparin bolus and drip, CXR and labs. Her CXR looks good. I called [facility] in [place] and talked with the ER doctor Dr Velázquez and Dr Soler the log driver. They accepted the patient. Departure - Departure Time of Disposition: 11:10 Disposition: DC/Tfer to Acute Hospital 02 Reason for Transfer *Q: Primary PCI Indicated Condition: Serious Clinical Impression: ST elevation (STEMI) myocardial infarction Qualifiers: Involved coronary artery: other coronary artery Qualified Code(s): I21.29 - ST elevation (STEMI) myocardial infarction involving other sites Hypertension Qualifiers: Hypertension type: essential hypertension Qualified Code(s): I10 - Essential ( primary) hypertension Referrals: PCP,None [Primary Care Provider] - Forms: ED Department Discharge Sepsis Event Note - Evaluation Sepsis Screening Result: No Definite Risk - Focused Exam Vital Signs: Vital Signs Temp Pulse Resp BP Pulse Ox 01/22/20 10:48 54 L 16 242/133 H 99 01/22/20 10:38 96.8 F L 54 L 16 100 Date Exam was Performed: 01/22/20 Time Exam was Performed: 10:52 - My Orders Last 24 Hours: My Active Orders 01/22/20 10:40 Cardiac Monitoring [RC] . DIRECTED EKG Documentation Completion [RC] STAT Oxygen Therapy [RC] PRN Peripheral IV Care [RC] . DIRECTED Chest 1V Frontal [CR] Stat CBC WITH AUTO DIFF [HEME] Stat COMPREHENSIVE METABOLIC PN,CMP [CHEM] Stat TROPONIN I [CHEM] Stat Sodium Chloride 0.9% [Saline Flush] 10 ml FLUSH ASDIRECTED PRN Peripheral IV Insertion Adult [OM.PC] Stat 01/22/20 10:45 Heparin Sodium/D5W [Heparin 25,000 Units in D5W 500 ML] 25,000 units in 500 ml IV TITRATE 01/22/20 11:00 Nitroglycerin/D5W [Nitroglycerin 25 MG/D5W 250 ML] 25 mg in 250 ml IV TITRATE - Assessment/Plan Last 24 Hours: My Active Orders 01/22/20 10:40 Cardiac Monitoring [RC] . DIRECTED EKG Documentation Completion [RC] STAT Oxygen Therapy [RC] PRN Peripheral IV Care [RC] . DIRECTED Chest 1V Frontal [CR] Stat CBC WITH AUTO DIFF [HEME] Stat COMPREHENSIVE METABOLIC PN,CMP [CHEM] Stat TROPONIN I [CHEM] Stat Sodium Chloride 0.9% [Saline Flush] 10 ml FLUSH ASDIRECTED PRN Peripheral IV Insertion Adult [OM.PC] Stat 01/22/20 10:45 Heparin Sodium/D5W [Heparin 25,000 Units in D5W 500 ML] 25,000 units in 500 ml IV TITRATE 01/22/20 11:00 Nitroglycerin/D5W [Nitroglycerin 25 MG/D5W 250 ML] 25 mg in 250 ml IV TITRATE
[2020-01-22] MEDS ORDERED: Morphine 4 MG/ML Syringe IVPUSH ONE (10:59)
[2020-01-22] MEDS ORDERED: Nitroglycerin/D5W 25 MG/250 ML BOTTLE IV SCH (11:00)
[2020-01-22] MEDS ORDERED: Morphine 4 MG/ML Syringe ONE (11:01)
[2020-01-22] MEDS ORDERED: Metoprolol Tartrate 5 MG/5 ML SDV ONE (11:07)
[2020-01-22] MEDS ORDERED: Ondansetron 4 MG/2 ML SDV IVPUSH ONE (11:14)
[2020-01-22] MEDS ORDERED: Ondansetron 4 MG/2 ML SDV ONE (11:15)
[2020-01-22 11:33] VITALS: PULSE 65
--- NOTE | 2020-01-22 11:33 | CR ---
Chest: Portable view of the chest was obtained. Comparison: No prior chest imaging. Heart size within normal limits for portable technique. Tortuous thoracic aorta is noted. No acute parenchymal change is suspected. Slight degenerative change is seen within the spine. Bony structures are also osteopenic. Impression: 1. Findings as noted above. 2. Nothing acute is suspected. Diagnostic code #2 This report was dictated in [facility]
[2020-01-22 11:35] VITALS: BP 180/95
== END 2020-01-22 11:35 ==
LOC: JD.ED 10:37
DX: I21.29 ST elevation (STEMI) myocardial infarction involving other sites (principal); I10 Essential (primary) hypertension; R00.1 Bradycardia, unspecified; Z79.899 Other long term (current) drug therapy
CPT/HCPCS: 36415; 71045; 80053; 84484; 85025; 92975; 93005; 96365; 96368; 96375; 99285; J1644; J2270; J2405; J3101; J3490; 93010

== ENCOUNTER 2021-03-18 11:07 | Emergency (ER) | payer BC, MEDICARE ==
[2021-03-18 11:29] VITALS: BP 131/66; PULSE 68
--- NOTE | 2021-03-18 12:25 | CR ---
Right forearm: 2 views of the right forearm were obtained. Comparison: No prior forearm study is available. Joint space narrowing is noted between the distal radius and navicular bone. Widening of the distance between the lunate and navicular bone are seen compatible with inter-carpal ligament rupture. Degenerative change is noted off the distal navicular bone as well as at the CMC joint of the thumb. Joint space narrowing is also noted within the elbow. No acute fracture or other bony abnormality is appreciated. Mild soft tissue swelling is noted. Impression: 1. Degenerative change within the wrist and elbow. 2. No acute osseous abnormality is appreciated. Diagnostic code #2
--- NOTE | 2021-03-18 12:30 | EDM.PDOC ---
ED HPI GENERAL MEDICAL PROBLEM - General Chief Complaint: Upper Extremity Injury/Pain Stated Complaint: R WRIST/ARM INJURY Time Seen by Provider: 03/18/21 11:35 Source of Information: Reports: Patient, RN Notes Reviewed History Limitations: Reports: No Limitations - History of Present Illness INITIAL COMMENTS - FREE TEXT/NARRATIVE: Patient is a 71-year-old female presenting to the emergency department for evaluation of right wrist pain. She reports that yesterday she was outside working in her garden when a grass snake startled her. She fell backwards and reached her right arm out to catch herself. She reports pain to the medial aspect of her right wrist. She is on Plavix. Denies any other injuries. She has no hip pain or back pain. She did not hit her head. Denies any previous fractures to this wrist. Right Lower Arm Pain Score (Numeric/FACES): 8 - Related Data Allergies Allergy/AdvReac Type Severity Reaction Status Date / Time No Known Allergies Allergy Verified 01/22/20 10:42 Home Meds: Home Meds amLODIPine Besylate [Amlodipine Besylate] 5 mg PO DAILY 03/15/16 [History] Aspirin [Halfprin] 81 mg PO DAILY 03/18/21 [History] Clopidogrel Bisulfate [Plavix] 75 mg PO DAILY 03/18/21 [History] Metoprolol Tartrate 25 mg PO DAILY 03/18/21 [History] Past Medical History HEENT History: Reports: Impaired Vision, Other (See Below) Other HEENT History: issues withe right eye-loss of vision and had surgery last sunday Cardiovascular History: Reports: Hypertension, CA, Stents Gastrointestinal History: Reports: Other (See Below) Other Gastrointestinal History: hemhorroids - Infectious Disease History Infectious Disease History: Reports: Chicken Pox, Measles - Past Surgical History GI Surgical History: Reports: Appendectomy, Other (See Below) Other GI Surgeries/Procedures: ruptured appendix in March 2016 Female Surgical History: Reports: Hysterectomy Social & Family History - Family History Family Medical History: No Pertinent Family History - Tobacco Use Tobacco Use Status *Q: Current Every Day Tobacco User Years of Tobacco use: 50 Packs/Tins Daily: 0.1 - Caffeine Use Caffeine Use: Reports: Coffee - Recreational Drug Use Recreational Drug Use: No - Living Situation & Occupation Living situation: Reports: Single Occupation: Employed Review of Systems - Review of Systems Review Of Systems: See Below Constitutional: Reports: No Symptoms Eyes: Reports: No Symptoms. Denies: Vision Change Ears: Reports: No Symptoms Nose: Reports: No Symptoms Mouth/Throat: Reports: No Symptoms Respiratory: Reports: No Symptoms. Denies: Shortness of Breath, Cough Cardiovascular: Reports: No Symptoms. Denies: Chest Pain GI/Abdominal: Reports: No Symptoms Genitourinary: Reports: No Symptoms Musculoskeletal: Reports: Other (Right wrist pain ecchymosis and swelling). Denies: Back Pain Skin: Reports: Bruising Neurological: Reports: No Symptoms Psychiatric: Reports: No Symptoms ED EXAM, GENERAL - Physical Exam Exam: See Below General Appearance: Alert, WD/WN, No Apparent Distress Respiratory/Chest: No Respiratory Distress, Lungs Clear, Normal Breath Sounds, No Accessory Muscle Use, Chest Non-Tender Cardiovascular: Normal Peripheral Pulses, Regular Rate, Rhythm, No Edema, No Gallop, No JVD, No Murmur, No Rub Extremities: Other (Extensive ecchymosis to the right wrist extending from the proximal hand to approximately one third up the forearm. No obvious deformity. Mild tenderness to palpation to the medial aspect of the wrist. Full range of motion.) Neurological: Alert, Oriented, CN II-XII Intact, Normal Cognition, Normal Gait, Normal Reflexes, No Motor/Sensory Deficits Psychiatric: Normal Affect, Normal Mood Course - Vital Signs Last Recorded V/S: Last Vital Signs Temp 96.2 F L 03/18/21 11:28 Pulse 68 03/18/21 11:28 Resp 20 03/18/21 11:28 BP 131/66 03/18/21 11:28 Pulse Ox 97 03/18/21 11:28 - Orders/Labs/Meds Orders: Active Orders 24 hr Category Date Time Status Hand Comp Min 3V Rt [CR] Stat Exams 03/18/21 11:39 Taken Wrist Comp Min 3V Rt [CR] Stat Exams 03/18/21 11:39 Taken - Re-Assessments/Exams Free Text/Narrative Re-Assessment/Exam: 03/18/21 12:28 X-ray of the right hand, wrist, and forearm reviewed by myself and Dr. Alvarez showed no evidence of fracture. Formal radiologist read is pending. Wayne wrap was applied to the hand and wrist to help with swelling. Recommend ice and elevation. I will write off from work for the next 2 days. Discharge instructions as documented. Departure - Departure Time of Disposition: 12:29 Disposition: Home, Self-Care 01 Condition: Good Clinical Impression: Wrist contusion Qualifiers: Encounter type: initial encounter Laterality: right Qualified Code(s): S60.211A - Contusion of right wrist, initial encounter - Discharge Information *PRESCRIPTION DRUG MONITORING PROGRAM REVIEWED*: No *COPY OF PRESCRIPTION DRUG MONITORING REPORT IN PATIENT [place]: No Instructions: Contusion Referrals: Lorri Celaya NP [Primary Care Provider] - Forms: ED Department Discharge, ED Return to Work/School Form Additional Instructions: You were seen in the emergency department today for pain, swelling, and bruising to your right hand and wrist. X-rays were completed and show no fracture. Wayne wrap has been applied to help with the swelling. Recommend intermittent ice and elevation for the next few days. You may use [id number] Tylenol or ibuprofen as needed for discomfort. You been provided a note off from work for the next 2 days. If symptoms fail to improve over the course of the next few days, recommend follow-up in the clinic. Return to ER for any new or worsening symptoms. Sepsis Event Note (ED) - Evaluation Sepsis Screening Result: No Definite Risk - Focused Exam Vital Signs: Vital Signs Temp Pulse Resp BP Pulse Ox 03/18/21 11:28 96.2 F L 68 20 131/66 97 - My Orders Last 24 Hours: My Active Orders 03/18/21 11:39 Hand Comp Min 3V Rt [CR] Stat Wrist Comp Min 3V Rt [CR] Stat - Assessment/Plan Last 24 Hours: My Active Orders 03/18/21 11:39 Hand Comp Min 3V Rt [CR] Stat Wrist Comp Min 3V Rt [CR] Stat
--- NOTE | 2021-03-18 12:46 | CR ---
Right wrist: 3 views of the right wrist were obtained. Comparison: No prior wrist study is available. Joint space narrowing is noted between the radius and navicular bone. Widening of the distance between the navicular and lunate bone is seen compatible with intercarpal ligament rupture. Degenerative change is also noted off the distal navicular bone. Mild degenerative change at the CMC joint of the thumb is seen. Mild joint space narrowing is seen between the lunate and capitate bone. No acute fracture or dislocation is seen. Impression: 1. Degenerative change as noted above. 2. 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 3. No acute abnormality is seen. Diagnostic code #2
--- NOTE | 2021-03-18 12:49 | CR ---
Right hand: 4 views of the right hand were obtained. Comparison: No prior hand study is available. Joint space narrowing is seen within the MCP, DIP and PIP joints. Bony structures are osteopenic. Degenerative change is also noted off the distal navicular bone and within the CMC joint of the thumb. Widening of the distance between the lunate and navicular bone is seen compatible with chronic intercarpal ligamentous rupture No acute fracture or dislocation is seen. Impression: 1. Degenerative change as noted above. Osteopenia is also noted. 2. No acute osseous finding is seen on right hand study. Diagnostic code #2
== END 2021-03-18 12:45 | disposition home or self-care (01) ==
LOC: JD.ED 11:07
DX: S60.211A Contusion of right wrist, initial encounter (principal); I25.2 Old myocardial infarction; I10 Essential (primary) hypertension; Z72.0 Tobacco use; Z79.82 Long term (current) use of aspirin; Z79.02 Long term (current) use of antithrombotics/antiplatelets; W18.39XA Other fall on same level, initial encounter; Y92.017 Garden or yard in single-family (private) house as the place of occurrence of the external cause
CPT/HCPCS: 73090-26-RT; 73090-RT; 73110-26-RT; 73110-RT; 73130-26-RT; 73130-RT; 99283-25

== ENCOUNTER 2021-03-26 11:23 | Emergency (ER) | payer BC, MEDICARE ==
[2021-03-26 11:38] VITALS: BP 149/83; PULSE 80
[2021-03-26] MEDS ORDERED: Sodium Chloride 0.9% 10 ML Syringe FLUSH PRN (11:48)
--- NOTE | 2021-03-26 12:01 | EDM.PDOC ---
ED HPI GENERAL MEDICAL PROBLEM - General Chief Complaint: Respiratory Problem Stated Complaint: WEAK/BODY ACHES/ABDOMINAL PAIN/SOB Time Seen by Provider: 03/26/21 11:46 Source of Information: Reports: Patient, RN Notes Reviewed History Limitations: Reports: No Limitations - History of Present Illness INITIAL COMMENTS - FREE TEXT/NARRATIVE: Patient is a 71-year-old female who presents to the ER for the evaluation of her multiple complaints. Patient states that she feels generally weak, has body aches all over, some lower abdominal pain, just feels like she cannot catch her breath. Notes this has been ongoing for the past few days, but did seem to worsen last night. She did have a fall about a week ago, did present to the ER for management, and she did not have anything broken at that time. Patient does have a rather large bruise to her right arm, and still is having some pain in her right arm. She is not been taking anything for pain management at home. Patient denies any sort of cough, but again states that she has had hot flashes, shortness of breath and feels that she just cannot catch her air. She is not really been able to eat or drink much for the last few days as well. Patient has had her Covid vaccines complete, and was recently tested on February 20 for a Covid exposure at work, and she was negative at that time. Notes that she has not been around anyone else has been sick. Of note her O2 sats are 100% on room air. Generalized Pain Score (Numeric/FACES): 10 - Related Data Allergies Allergy/AdvReac Type Severity Reaction Status Date / Time No Known Allergies Allergy Verified 03/26/21 11:38 Home Meds: Home Meds Aspirin [Halfprin] 81 mg PO DAILY 03/18/21 [History] Clopidogrel Bisulfate [Plavix] 75 mg PO DAILY 03/18/21 [History] Metoprolol Tartrate 25 mg PO DAILY 03/18/21 [History] Cefdinir [Omnicef] 300 mg PO BID 5 Days #10 cap 03/26/21 [Rx] Furosemide 20 mg PO DAILY 03/26/21 [History] Nitroglycerin 0.4 mg SL ASDIRECTED PRN 03/26/21 [History] Potassium Chloride [Klor-Con] 20 meq PO DAILY 03/26/21 [History] Rosuvastatin Calcium 20 mg PO BEDTIME 03/26/21 [History] traMADol [Ultram] 1 - 2 tab PO ASDIRECTED PRN 03/26/21 [History] Past Medical History HEENT History: Reports: Impaired Vision, Other (See Below) Other HEENT History: issues withe right eye-loss of vision and had surgery last sunday Cardiovascular History: Reports: Hypertension, PR, Stents Gastrointestinal History: Reports: Other (See Below) Other Gastrointestinal History: hemhorroids - Infectious Disease History Infectious Disease History: Reports: Chicken Pox, Measles - Past Surgical History GI Surgical History: Reports: Appendectomy, Other (See Below) Other GI Surgeries/Procedures: ruptured appendix in March 2016 Female Surgical History: Reports: Hysterectomy Social & Family History - Family History Family Medical History: No Pertinent Family History - Tobacco Use Tobacco Use Status *Q: Current Every Day Tobacco User Years of Tobacco use: 50 Packs/Tins Daily: 0.1 - Caffeine Use Caffeine Use: Reports: None - Living Situation & Occupation Living situation: Reports: Single Occupation: Employed ED ROS GENERAL - Review of Systems Review Of Systems: Comprehensive ROS is negative, except as noted in HPI. ED EXAM, GENERAL - Physical Exam Exam: See Below Exam Limited By: No Limitations General Appearance: Alert, WD/WN, Anxious (pt has generalized anxiety present) Respiratory/Chest: No Respiratory Distress, Lungs Clear, Normal Breath Sounds, No Accessory Muscle Use, Chest Non-Tender Cardiovascular: Normal Peripheral Pulses, Regular Rate, Rhythm, No Edema Peripheral Pulses: 2+: Radial (L), Radial (R) GI/Abdominal: Normal Bowel Sounds, Soft, Non-Tender, No Distention, No Mass Extremities: Normal Inspection, Normal Capillary Refill Neurological: Alert, Oriented, Normal Cognition, No Motor/Sensory Deficits Psychiatric: Anxious Skin Exam: Warm, Dry, Intact, Normal Color, No Rash, Ecchymosis (large area to right arm s/p fall 1 week ago) #1 Interpretation EKG Date: 03/26/21 Time: 11:56 Rhythm: NSR Rate (Beats/Min): 75 [place]: Normal P-Wave: Present QRS: Normal ST-T: Normal QT: Normal Comparison: NA - No Prior EKG EKG Interpretation Comments: No obvious ischemia or acute ST changes noted, reviewed by myself and Dr. Pierre. Course - Vital Signs Last Recorded V/S: Last Vital Signs Temp 97 F 03/26/21 11:35 Pulse 80 03/26/21 11:35 Resp 26 H 03/26/21 11:35 BP 149/83 H 03/26/21 11:35 Pulse Ox 100 03/26/21 11:35 - Orders/Labs/Meds Orders: Active Orders 24 hr Category Date Time Status EKG Documentation Completion [RC] STAT Care 03/26/21 11:46 Ordered Peripheral IV Care [RC] . DIRECTED Care 03/26/21 11:48 Ordered UA W/MICROSCOPIC [URIN] Stat Lab 03/26/21 11:46 Ordered Sodium Chloride 0.9% [Saline Flush] Med 03/26/21 11:48 Ordered 10 ml FLUSH ASDIRECTED PRN Peripheral IV Insertion Adult [OM.PC] Routine Oth 03/26/21 11:48 Ordered Medication Orders Sodium Chloride (Sodium Chloride 0.9% 10 Ml Syringe) 10 ml FLUSH ASDIRECTED PRN PRN Reason: Keep Vein Open Last Admin: 03/26/21 12:23 Dose: 10 ml Documented by: JASEN Labs: Laboratory Tests 03/26/21 03/26/21 03/26/21 Range/Units 12:10 12:10 12:10 WBC 9.17 (3.98-10.04) K/mm3 RBC 4.24 (3.98-5.22) M/mm3 Hgb 13.5 D (11.2-15.7) gm/dl Hct 40.1 (34.1-44.9) % MCV 94.6 (79.4-94.8) fl MCH 31.8 (25.6-32.2) pg MCHC 33.7 (32.2-35.5) g/dl RDW Std Deviation 44.9 (36.4-46.3) fL Plt Count 410 H D (182-369) K/mm3 MPV 10.2 (9.4-12.3) fl Neut % (Auto) 62.7 (34.0-71.1) % Lymph % (Auto) 26.9 (19.3-51.7) % Thomas % (Auto) 8.6 (4.7-12.5) % Eos % (Auto) 1.4 (0.7-5.8) Baso % (Auto) 0.3 (0.1-1.2) % Neut # (Auto) 5.74 (1.56-6.13) K/mm3 Lymph # (Auto) 2.47 (1.18-3.74) K/mm3 Thomas # (Auto) 0.79 H (0.24-0.36) K/mm3 Eos # (Auto) 0.13 (0.04-0.36) K/mm3 Baso # (Auto) 0.03 (0.01-0.08) K/mm3 D-Dimer, Quantitative 0.71 H (0.19-0.50) mg/L Sodium (136-145) mEq/L Potassium (3.5-5.1) mEq/L Chloride (98-107) mEq/L Carbon Dioxide (21-32) mEq/L Anion Gap (5-15) BUN (7-18) mg/dL Creatinine (0.55-1.02) mg/dL Est Cr Clr Drug Dosing mL/min Estimated GFR (MDRD) (>60) mL/min BUN/Creatinine Ratio (14-18) Glucose (70-99) mg/dL Lactic Acid (0.4-2.0) mmol/L Calcium (8.5-10.1) mg/dL Magnesium (1.8-2.4) mg/dL Total Bilirubin (0.2-1.0) mg/dL AST (15-37) U/L ALT (14-59) U/L Alkaline Phosphatase (46-116) U/L Troponin I (0.00-0.056) ng/mL C-Reactive Protein 0.3 (<1.0) mg/dL NT-Pro-B Natriuret Pep (0-125) pg/mL Total Protein (6.4-8.2) g/dl Albumin (3.4-5.0) g/dl Globulin gm/dL Albumin/Globulin Ratio (1-2) Urine Color (Yellow) Urine Appearance (Clear) Urine pH (5.0-8.0) Ur Specific [place] (1.005-1.030) Urine Protein (Negative) Urine Glucose (UA) (Negative) Urine Ketones (Negative) Urine Occult Blood (Negative) Urine Nitrite (Negative) Urine Bilirubin (Negative) Urine Urobilinogen (0.2-1.0) Ur Leukocyte Esterase (Negative) Influenza Type A RNA (NEGATIVE) Influenza Type B RNA (NEGATIVE) SARS-CoV-2 RNA (NILA) (NEGATIVE) 03/26/21 03/26/21 03/26/21 Range/Units 12:10 12:10 12:15 WBC (3.98-10.04) K/mm3 RBC (3.98-5.22) M/mm3 Hgb (11.2-15.7) gm/dl Hct (34.1-44.9) % MCV (79.4-94.8) fl MCH (25.6-32.2) pg MCHC (32.2-35.5) g/dl RDW Std Deviation (36.4-46.3) fL Plt Count (182-369) K/mm3 MPV (9.4-12.3) fl Neut % (Auto) (34.0-71.1) % Lymph % (Auto) (19.3-51.7) % Thomas % (Auto) (4.7-12.5) % Eos % (Auto) (0.7-5.8) Baso % (Auto) (0.1-1.2) % Neut # (Auto) (1.56-6.13) K/mm3 Lymph # (Auto) (1.18-3.74) K/mm3 Thomas # (Auto) (0.24-0.36) K/mm3 Eos # (Auto) (0.04-0.36) K/mm3 Baso # (Auto) (0.01-0.08) K/mm3 D-Dimer, Quantitative (0.19-0.50) mg/L Sodium 145 (136-145) mEq/L Potassium 4.0 (3.5-5.1) mEq/L Chloride 108 H (98-107) mEq/L Carbon Dioxide 24 (21-32) mEq/L Anion Gap 17.0 H (5-15) BUN 18 (7-18) mg/dL Creatinine 0.8 (0.55-1.02) mg/dL Est Cr Clr Drug Dosing 43.50 mL/min Estimated GFR (MDRD) > 60 (>60) mL/min BUN/Creatinine Ratio 22.5 H (14-18) Glucose 99 (70-99) mg/dL Lactic Acid 1.2 (0.4-2.0) mmol/L Calcium 8.9 (8.5-10.1) mg/dL Magnesium 2.1 (1.8-2.4) mg/dL Total Bilirubin 0.3 (0.2-1.0) mg/dL AST 24 (15-37) U/L ALT 18 (14-59) U/L Alkaline Phosphatase 80 (46-116) U/L Troponin I < 0.017 (0.00-0.056) ng/mL C-Reactive Protein (<1.0) mg/dL NT-Pro-B Natriuret Pep 425 H (0-125) pg/mL Total Protein 7.1 (6.4-8.2) g/dl Albumin 3.6 (3.4-5.0) g/dl Globulin 3.5 gm/dL Albumin/Globulin Ratio 1.0 (1-2) Urine Color (Yellow) Urine Appearance (Clear) Urine pH (5.0-8.0) Ur Specific [place] (1.005-1.030) Urine Protein (Negative) Urine Glucose (UA) (Negative) Urine Ketones (Negative) Urine Occult Blood (Negative) Urine Nitrite (Negative) Urine Bilirubin (Negative) Urine Urobilinogen (0.2-1.0) Ur Leukocyte Esterase (Negative) Influenza Type A RNA (NEGATIVE) Influenza Type B RNA (NEGATIVE) SARS-CoV-2 RNA (NILA) (NEGATIVE) 03/26/21 03/26/21 Range/Units 12:51 13:42 WBC (3.98-10.04) K/mm3 RBC (3.98-5.22) M/mm3 Hgb (11.2-15.7) gm/dl Hct (34.1-44.9) % MCV (79.4-94.8) fl MCH (25.6-32.2) pg MCHC (32.2-35.5) g/dl RDW Std Deviation (36.4-46.3) fL Plt Count (182-369) K/mm3 MPV (9.4-12.3) fl Neut % (Auto) (34.0-71.1) % Lymph % (Auto) (19.3-51.7) % [place] % (Auto) (4.7-12.5) % Eos % (Auto) (0.7-5.8) Baso % (Auto) (0.1-1.2) % Neut # (Auto) (1.56-6.13) K/mm3 Lymph # (Auto) (1.18-3.74) K/mm3 [place] # (Auto) (0.24-0.36) K/mm3 Eos # (Auto) (0.04-0.36) K/mm3 Baso # (Auto) (0.01-0.08) K/mm3 D-Dimer, Quantitative (0.19-0.50) mg/L Sodium (136-145) mEq/L Potassium (3.5-5.1) mEq/L Chloride (98-107) mEq/L Carbon Dioxide (21-32) mEq/L Anion Gap (5-15) BUN (7-18) mg/dL Creatinine (0.55-1.02) mg/dL Est Cr Clr Drug Dosing mL/min Estimated GFR (MDRD) (>60) mL/min BUN/Creatinine Ratio (14-18) Glucose (70-99) mg/dL Lactic Acid (0.4-2.0) mmol/L Calcium (8.5-10.1) mg/dL Magnesium (1.8-2.4) mg/dL Total Bilirubin (0.2-1.0) mg/dL AST (15-37) U/L ALT (14-59) U/L Alkaline Phosphatase (46-116) U/L Troponin I (0.00-0.056) ng/mL C-Reactive Protein (<1.0) mg/dL NT-Pro-B Natriuret Pep (0-125) pg/mL Total Protein (6.4-8.2) g/dl Albumin (3.4-5.0) g/dl Globulin gm/dL Albumin/Globulin Ratio (1-2) Urine Color Yellow (Yellow) Urine Appearance Clear (Clear) Urine pH 7.0 (5.0-8.0) Ur Specific [place] 1.020 (1.005-1.030) Urine Protein Negative (Negative) Urine Glucose (UA) Negative (Negative) Urine Ketones 2+ H (Negative) Urine Occult Blood Negative (Negative) Urine Nitrite Negative (Negative) Urine Bilirubin Negative (Negative) Urine Urobilinogen 1.0 (0.2-1.0) Ur Leukocyte Esterase Trace H (Negative) Influenza Type A RNA Negative (NEGATIVE) Influenza Type B RNA Negative (NEGATIVE) SARS-CoV-2 RNA (NILA) Negative (NEGATIVE) Meds: Medications Generic Name Dose Route Start Last Admin Trade Name Melia PRN Reason Stop Dose Admin Sodium Chloride 10 ml 03/26/21 11:48 03/26/21 12:23 Sodium Chloride 0.9% 10 Ml Syringe FLUSH 10 ml ASDIRECTED PRN Administration Keep Vein Open - Re-Assessments/Exams Free Text/Narrative Re-Assessment/Exam: 03/26/21 11:58 Patient presents to the ER for the evaluation of her multiple symptoms, we will get a multitude of labs, get IV established, and recheck a Covid screen however I find this to be unlikely, as her O2 sats are really good on room air, this does have a component of anxiety appreciable. 03/26/21 13:42 COVID screen was negative. Laboratory evaluation is fairly unremarkable; except that she had a elevated D-dimer of 0.71 again she has a rather large bruise on her right arm that takes up most of the forearm, it is likely the cause of the elevated D-dimer. However with her shortness of breath, I will extend the offer to do CTA for further evaluation of possible pulmonary embolism. Patient's chest x-ray was taken, official radiology read is still pending. There is nothing that is apparent by my eye that would be suspicious for consolidation versus other. Still awaiting urinalysis. 03/26/21 14:24 Chest x-ray has been read as probable emphysematous change, there are subpleural blebs noted within the right upper chest that appear to be fairly stable. This is likely the cause of the patient's shortness of breath. Urinalysis does show trace leukocyte Estrace, microscopic is still pending for the most part. But with her having low abdomen pain, body aches and not feeling well she could have a UTI causing some these issues. Departure - Departure Time of Disposition: 14:35 Disposition: Home, Self-Care 01 Condition: Good Clinical Impression: UTI (urinary tract infection) Qualifiers: Urinary tract infection type: acute cystitis Hematuria presence: without hematuria Qualified Code(s): N30.00 - Acute cystitis without hematuria - Discharge Information *PRESCRIPTION DRUG MONITORING PROGRAM REVIEWED*: No *COPY OF PRESCRIPTION DRUG MONITORING REPORT IN PATIENT [place]: No Prescriptions: Cefdinir [Omnicef] 300 mg PO BID 5 Days #10 cap Instructions: Urinary Tract Infection, Adult, [id number] Referrals: Lorri Celaya NP [Primary Care Provider] - Forms: ED Department Discharge, ED Return to Work/School Form Additional Instructions: You were evaluated in the ER today for your multiple symptoms. Extensive laboratory evaluation, and chest x-ray, and EKG are essentially unremarkable. Your urinalysis was concerning for possible UTI, and you have been started on Omnicef, 1 tablet 2 times a day for the next 5 days. This medication was electronically sent to the [facility] located near [facility]. Chest x-ray did demonstrate some slight emphysema type changes, which is common for people who used to smoke. This could be causing some of your shortness of breath type issues that you were experiencing. Your D-dimer was slightly elevated however you do have a rather large bruise on the right arm from your fall last week, this is likely elevated due to that. A CTA to rule out pulmonary embolus was offered at today's visit, you but you declined further evaluation. You will need to keep your self nourished, as there is some slight malnourishment noted on laboratory evaluation, please increase your fluid intake such as Gatorade/Powerade, and obtain some protein shakes like Ensure or some meal replacement shakes to help keep your body nourished. You need to keep your self fed and healthy so you can start feeling better. Please do not hesitate to return to the ER at any time if symptoms change or worsen. Sepsis Event Note (ED) - Evaluation Sepsis Screening Result: No Definite Risk - Focused Exam Vital Signs: Vital Signs Temp Pulse Resp BP Pulse Ox 03/26/21 11:35 97 F 80 26 H 149/83 H 100 - My Orders Last 24 Hours: My Active Orders 03/26/21 11:46 EKG Documentation Completion [RC] STAT UA W/MICROSCOPIC [URIN] Stat 03/26/21 11:48 Peripheral IV Care [RC] . DIRECTED Sodium Chloride 0.9% [Saline Flush] 10 ml FLUSH ASDIRECTED PRN Peripheral IV Insertion Adult [OM.PC] Routine - Assessment/Plan Last 24 Hours: My Active Orders 03/26/21 11:46 EKG Documentation Completion [RC] STAT UA W/MICROSCOPIC [URIN] Stat 03/26/21 11:48 Peripheral IV Care [RC] . DIRECTED Sodium Chloride 0.9% [Saline Flush] 10 ml FLUSH ASDIRECTED PRN Peripheral IV Insertion Adult [OM.PC] Routine
[2021-03-26 13:39] LABS: CORONAVIRUS COVID-19 NAA NEGATIVE (NEGATIVE)
--- NOTE | 2021-03-26 14:17 | CR ---
Chest: Portable view of the chest was obtained. Comparison: Prior chest x-ray of 01/22/20. Heart size and mediastinum are normal. Lungs show no definite acute parenchymal change. Lungs are somewhat hyperinflated raising the question of emphysematous change. Subpleural blebs are noted within the right upper chest which appear to be fairly stable. Bony structures are osteopenic. Mild scoliosis is noted within the spine. Impression: 1. Probable emphysematous change. Subpleural blebs within the right upper chest. 2. Nothing acute is seen on portable chest x-ray. Diagnostic code #2
== END 2021-03-26 15:20 | disposition home or self-care (01) ==
LOC: JD.ED 11:23
DX: N30.00 Acute cystitis without hematuria (principal); I10 Essential (primary) hypertension; I25.2 Old myocardial infarction; Z72.0 Tobacco use; Z20.822 Contact with and (suspected) exposure to COVID-19; Z79.82 Long term (current) use of aspirin; Z79.02 Long term (current) use of antithrombotics/antiplatelets; Z79.899 Other long term (current) drug therapy
CPT/HCPCS: 0240U; 36415; 71045; 80053; 81003; 83605; 83735; 83880; 84484; 85025; 85379; 86140; 93005; 99285; 93010; 99284

== ENCOUNTER 2025-06-15 10:44 | Emergency (ER) | payer MEDICARE, OTHER ==
[2025-06-15] MEDS ORDERED: Sodium Chloride 0.9% 10 ML Syringe FLUSH PRN (11:09)
[2025-06-15 11:40] LABS: MEAN PLATELET VOLUME 10.4 fl (9.4-12.3); NEUTROPHILS PERCENT AUTO 67.1 % (41.0-71.0); PLATELET COUNT,PLT 300 K/mm3 (150-400); RED BLOOD CELL COUNT 4.59 M/mm3 (4.10-5.30); WHITE BLOOD CELL COUNT,WBC 10.39 K/mm3 (3.9-11.3)
[2025-06-15 11:41] LABS: BASOPHILS ABSOLUTE AUTO 0.1 K/mm3 (0.0-0.2); BASOPHILS PERCENT AUTO 0.6 % (0.0-1.0); EOSINOPHILS ABSOLUTE AUTO 0.1 K/mm3 (0.0-0.4); EOSINOPHILS PERCENT AUTO 0.5 % (0.0-6.0); IMMATURE GRAN ABSOLUTE AUTO 0.02 K/mm3 (0.00-0.05); IMMATURE GRAN PERCENT AUTO 0.2 % (0.0-0.4); LYMPHOCYTES ABSOLUTE AUTO 2.6 K/mm3 (1.0-4.8); LYMPHOCYTES PERCENT AUTO 25.0 % (24.0-44.0); MONOCYTES ABSOLUTE AUTO 0.7 K/mm3 (0.0-0.8); MONOCYTES PERCENT AUTO 6.6 % (0.0-8.0); NEUTROPHILS ABSOLUTE AUTO 7.0 K/mm3 (1.8-7.7); NRBC ABSOLUTE 0.00 (0.00-0.02); NRBC PERCENT 0.0 % (0.0-0.2)
[2025-06-15 11:51] LABS: A/G RATIO 1.0 (1-2); ALANINE AMINOTRANSFERASE,ALT 21.0 U/L (14-59); ASPARTATE AMNIOTRANSFERASE,AST 24.0 U/L (15-37); BILIRUBIN TOTAL 0.5 mg/dL (0.2-1.0); BLOOD UREA NITROGEN,BUN 11.0 mg/dL (7-18); CARBON DIOXIDE,CO2 25.0 mEq/L (21-32); CHLORIDE,CL 108.0 mEq/L (98-107); CREATININE 0.8 mg/dL (0.55-1.02); EST CRCL DRUG DOSING (CG) 38.21 mL/min; ESTIMATED GFR 76.0 mL/min (>60); GLUCOSE RANDOM 109.0 mg/dL (70-99); POTASSIUM,K 3.5 mEq/L (3.5-5.1); PROTEIN TOTAL,TP 7.1 g/dl (6.4-8.2); SODIUM,NA 143.0 mEq/L (136-145)
[2025-06-15] MEDS: Sodium Chloride 0.9% 10 ML Syringe FLUSH PRN (12:13)
[2025-06-15] MEDS: Iopamidol 612 MG/ML 100 ML Bottle IVPUSH ONE (12:13)
[2025-06-15 13:11] LABS: APPEARANCE,URINE CLEAR (Clear); GLUCOSE,URINE NEGATIVE (Negative); OCCULT BLOOD,URINE TRACE-INTACT (Negative)
[2025-06-15 13:35] VITALS: BP 123/73; PULSE 68
== END 2025-06-15 13:35 | disposition home or self-care (01) ==
LOC: JD.ED 10:44
DX: K59.00 Constipation, unspecified (principal); Z79.899 Other long term (current) drug therapy; Z90.710 Acquired absence of both cervix and uterus
CPT/HCPCS: 36415; 74177; 80053; 81001; 83690; 85025; 86140; 87086; 99284; Q9967; 99283